=== PATIENT | male | born 1960 | race Caucasian/White ===

== ENCOUNTER → 2017-05-07 | Day surgery (SDC) | payer BC ==
[~2017-05-07] MED LIST: Lactated Ringers 1,000 ML IV SCH; Propofol 200 MG/20 ML SDV IV ONE
--- NOTE | 2017-05-10 07:55 | OR ---
DATE OF OPERATION: 05/07/2017 PREOPERATIVE DIAGNOSIS: SCREENING COLONOSCOPY. POSTOPERATIVE DIAGNOSIS: SCREENING COLONOSCOPY. SURGEON: Remi Villarreal MD PROCEDURE: FULL LENGTH COLONOSCOPY WITH POLYP REMOVAL X2. ANESTHESIA: MATERIAL SPECIALIST due to obstructive sleep apnea, morbid obesity, and seizure disorder. COMPLICATIONS: None. SPECIMEN: Hyperplastic polyps x2. FINDINGS: 1. Full-length colonoscopy. 2. Mild sigmoid diverticulosis. 3. Two small hyperplastic polyps. See note. RECOMMENDATIONS: Routine followup in 5-10 years pending path report. INDICATIONS: Mr. Lo was in for routine physical. He is due for a screening colonoscopy. DESCRIPTION OF PROCEDURE: The patient was prepped and draped, placed in the left lateral decubitus position. A lubricated Olympus colonoscope was inserted and easily advanced to the cecum. Direct visualization of the ileocecal valve and appendiceal orifice was accomplished. The bowel prep was excellent. Upon withdrawal, in the cecum, the patient did have a retroverted appendiceal stump. No other lesions were found in the right colon. Just near the hepatic flexure patient had a small flat hyperplastic-appearing polyp removed in its entirety with cold forceps biopsy x2. The rest of the transverse and descending colons were unremarkable. In the sigmoid area, there were scattered diverticula, mild in severity. No acute inflammatory changes. There are no signs of any polyps, mass, ulceration, or bleeding sites. No vascular abnormalities or signs of colitis. The rectal vault was evaluated and another small hyperplastic polyp was seen and removed with a forceps biopsy x2. Retroflexion showed no perianal lesions. Air was then suctioned, scope removed without complication. LUCIO/GISSEL /[id number]
== END ==
LOC: CC.SDS 13:25
PROVIDERS: ATTEND Family Medicine
DX: Z12.11 Encounter for screening for malignant neoplasm of colon (principal); D12.8 Benign neoplasm of rectum; D12.3 Benign neoplasm of transverse colon; K57.30 Diverticulosis of large intestine without perforation or abscess without bleeding; G47.33 Obstructive sleep apnea (adult) (pediatric); I10 Essential (primary) hypertension; E66.01 Morbid (severe) obesity due to excess calories; N40.0 Benign prostatic hyperplasia without lower urinary tract symptoms; Z68.41 Body mass index [BMI] 40.0-44.9, adult; Z99.89 Dependence on other enabling machines and devices
CPT/HCPCS: 45380; J2704; J7120

== ENCOUNTER 2020-01-07 17:12 | Observation (INO) | payer BC ==
[2020-01-07] MEDS ORDERED: Aspirin 81 MG Tab.Chew PO ONE (17:28)
--- NOTE | 2020-01-07 18:02 | EDM.PDOC ---
ED HPI GENERAL MEDICAL PROBLEM - General Chief Complaint: Chest Pain Stated Complaint: chest pain Time Seen by Provider: 01/07/20 17:40 Source of Information: Reports: Patient History Limitations: Reports: No Limitations - History of Present Illness INITIAL COMMENTS - FREE TEXT/NARRATIVE: This patient is a 59 year old male that presents to the ER. Patient reports he had been mowing grass and the mower had issues, so he had to finish with manual push mower. He reports he had to manually pull start the mower, then went back to mowing grass. He reports at about 4pm he had left central chest pain that was achy and tight in nature. He reports that the pain was a 5/10 and he was short of breath with it. He report that pain lasted about 10 minutes then went down to a 1/10, "barely there, almost gone." He reports that he is a nonsmoker, occasional drinker of about 4 beers per week. He reports history of HTN. He reports father had Bypass surgery older, but had history of weak heart. Patient reports that he has no history of stress test or cardiac history himself. Onset: Today Onset Date: 01/07/20 Onset Time: 16:00 Duration: Minutes: (10), Improving Improves with: Reports: None Worsens with: Reports: None Associated Symptoms: Reports: Chest Pain. Denies: Confusion, Cough, cough w sputum, Diaphoresis, Fever/Chills, Headaches, Loss of Appetite, Malaise, Nausea/Vomiting, Rash, Seizure, Shortness of Breath, Syncope, Weakness - Related Data Allergies Allergy/AdvReac Type Severity Reaction Status Date / Time No Known Allergies Allergy Verified 01/07/20 17:14 Home Meds: Home Meds Losartan [Cozaar] 50 mg PO DAILY 01/07/20 [History] hydroCHLOROthiazide [Hydrochlorothiazide] 12.5 mg PO DAILY 01/07/20 [History] Past Medical History HEENT History: Reports: Impaired Vision Cardiovascular History: Reports: Hypertension Gastrointestinal History: Reports: None Neurological History: Reports: Seizure - Past Surgical History HEENT Surgical History: Reports: None Cardiovascular Surgical History: Reports: None GI Surgical History: Reports: Appendectomy Other Neurological Surgeries/Procedures: R) temporal lobe removal d/t seizures. Social & Family History - Family History Family Medical History: Noncontributory - Tobacco Use Smoking Status *Q: Never Smoker Second Hand Smoke Exposure: No - Caffeine Use Caffeine Use: Reports: None - Recreational Drug Use Recreational Drug Use: No ED ROS GENERAL - Review of Systems Review Of Systems: See Below Constitutional: Reports: No Symptoms HEENT: Reports: No Symptoms Respiratory: Reports: Shortness of Breath. Denies: Pleuritic Chest Pain, Cough Cardiovascular: Reports: Chest Pain Endocrine: Reports: No Symptoms GI/Abdominal: Reports: No Symptoms : Reports: No Symptoms Musculoskeletal: Reports: No Symptoms Skin: Reports: No Symptoms Neurological: Reports: No Symptoms Psychiatric: Reports: No Symptoms Hematologic/Lymphatic: Reports: No Symptoms Immunologic: Reports: No Symptoms ED EXAM, GENERAL - Physical Exam Exam: See Below Exam Limited By: No Limitations General Appearance: Alert, WD/WN, No Apparent Distress Eye Exam: Bilateral Eye: Normal Inspection, PERRL Ears: Normal External Exam, Normal Canal, Hearing Grossly Normal, Normal TMs Ear Exam: Bilateral Ear: Auricle Normal, Canal Normal, TM normal Nose: Normal Inspection, Normal Mucosa, No Blood Throat/Mouth: Normal Inspection, Normal Lips, Normal Teeth, Normal Gums, Normal Oropharynx, Normal Voice, No Airway Compromise Head: Atraumatic, Normocephalic Neck: Normal Inspection, Supple, Non-Tender, Full Range of Motion Respiratory/Chest: No Respiratory Distress, Lungs Clear, Normal Breath Sounds, No Accessory Muscle Use, Chest Non-Tender Cardiovascular: Normal Peripheral Pulses, Regular Rate, Rhythm, No Edema, No Gallop, No JVD, No Murmur, No Rub Peripheral Pulses: 2+: Radial (L), Radial (R), Posterior Tibial (L), Posterior Tibial (R) GI/Abdominal: Soft, Non-Tender Back Exam: Normal Inspection, Full Range of Motion Extremities: Normal Inspection, Normal Range of Motion, Non-Tender, No Pedal Edema, Normal Capillary Refill Neurological: Alert, Oriented, Normal Cognition, Normal Gait, No Motor/Sensory Deficits Psychiatric: Normal Affect, Normal Mood Skin Exam: Warm, Dry, Intact, Normal Color, No Rash EKG INTERPRETATION EKG Date: 01/07/20 Time: 18:09 Rate (Beats/Min): 60 QRS: Normal ST-T: Normal Comparison: NA - No Prior EKG Course - Vital Signs Last Recorded V/S: Last Vital Signs Temp 98.0 F 01/07/20 18:17 Pulse 69 08/16/20 18:17 Resp 18 01/07/20 18:17 BP 124/70 01/07/20 18:17 Pulse Ox 95 01/07/20 18:17 - Orders/Labs/Meds Orders: Active Orders 24 hr Category Date Time Status CXR [Chest 2V] [CR] Stat Exams 01/07/20 17:37 Taken Nitroglycerin [Nitrostat] Med 01/07/20 18:07 Active 0.4 mg SL Q5M PRN Medication Orders Nitroglycerin (Nitrostat) 0.4 mg SL Q5M PRN PRN Reason: Chest Pain Last Admin: 01/07/20 18:10 Dose: 0.4 mg Documented by: STEPHY Labs: Laboratory Tests 01/07/20 01/07/20 01/07/20 Range/Units 17:45 17:45 17:45 WBC 7.6 (5.0-10.0) 10^3/uL RBC 5.16 (4.50-6.00) 10^6/uL Hgb 15.7 (14.0-18.0) g/dL Hct 46.0 (40.0-54.0) % MCV 89.1 (82.0-94.0) fL MCH 30.4 (27.0-32.0) pg MCHC 34.1 (33.0-38.0) g/dL RDW Coeff of Yaima 14.1 (11.0-15.0) % Plt Count 212 (150-400) 10^3/uL Neut % (Auto) 58.5 (35-85) % Lymph % (Auto) 26.3 (10-55) % [place] % (Auto) 13.5 (0-16) % Eos % (Auto) 1.2 (0-5) % Baso % (Auto) 0.5 (0-3) % Neut # (Auto) 4.42 (1.80-7.00) 10^3/uL Lymph # (Auto) 1.99 (1.00-4.80) 10^3/uL [place] # (Auto) 1.02 H (0.00-0.80) 10^3/uL Eos # (Auto) 0.09 (0.00-0.45) 10^3/uL Baso # (Auto) 0.04 10^3/uL APTT (23.2-32.3) SEC Sodium 140 (136-145) mEq/L Potassium 4.0 (3.5-5.0) mEq/L Chloride 104 (98-106) mEq/L Carbon Dioxide 25 (21-32) mmol/L BUN 14 (7-18) mg/dL Creatinine 1.0 (0.7-1.3) mg/dL Est Cr Clr Drug Dosing 83.14 mL/min Estimated GFR (MDRD) > 60 (>=60) mL/min Glucose 104 H (75-99) mg/dL Calcium 9.1 (8.4-10.1) mg/dL Total Bilirubin 0.6 (0.0-1.0) mg/dL AST 31 (15-37) U/L ALT 52 (12-78) U/L Alkaline Phosphatase 81 (46-116) U/L Lactate Dehydrogenase 217 H (100-190) U/L Creatine Kinase 159 (35-232) U/L Troponin I 0.031 (0.00-0.06) ng/mL Total Protein 7.1 (6.4-8.2) g/dL Albumin 3.8 (3.4-5.0) g/dL Lipase 133 (73-393) U/L COVID-19 (YE) Negative (NEGATIVE) 01/07/20 01/07/20 Range/Units 17:45 21:00 WBC (5.0-10.0) 10^3/uL RBC (4.50-6.00) 10^6/uL Hgb (14.0-18.0) g/dL Hct (40.0-54.0) % MCV (82.0-94.0) fL MCH (27.0-32.0) pg MCHC (33.0-38.0) g/dL RDW Coeff of Yaima (11.0-15.0) % Plt Count (150-400) 10^3/uL Neut % (Auto) (35-85) % Lymph % (Auto) (10-55) % [place] % (Auto) (0-16) % Eos % (Auto) (0-5) % Baso % (Auto) (0-3) % Neut # (Auto) (1.80-7.00) 10^3/uL Lymph # (Auto) (1.00-4.80) 10^3/uL [place] # (Auto) (0.00-0.80) 10^3/uL Eos # (Auto) (0.00-0.45) 10^3/uL Baso # (Auto) 10^3/uL APTT 23.9 (23.2-32.3) SEC Sodium (136-145) mEq/L Potassium (3.5-5.0) mEq/L Chloride (98-106) mEq/L Carbon Dioxide (21-32) mmol/L BUN (7-18) mg/dL Creatinine (0.7-1.3) mg/dL Est Cr Clr Drug Dosing mL/min Estimated GFR (MDRD) (>=60) mL/min Glucose (75-99) mg/dL Calcium (8.4-10.1) mg/dL Total Bilirubin (0.0-1.0) mg/dL AST (15-37) U/L ALT (12-78) U/L Alkaline Phosphatase (46-116) U/L Lactate Dehydrogenase (100-190) U/L Creatine Kinase (35-232) U/L Troponin I 0.059 (0.00-0.06) ng/mL Total Protein (6.4-8.2) g/dL Albumin (3.4-5.0) g/dL Lipase (73-393) U/L COVID-19 (YE) (NEGATIVE) Meds: Medications Generic Name Dose Route Start Last Admin Trade Name Freq PRN Reason Stop Dose Admin Nitroglycerin 0.4 mg 01/07/20 18:07 01/07/20 18:10 Nitrostat SL 0.4 mg Q5M PRN Administration Chest Pain Discontinued Medications Generic Name Dose Route Start Last Admin Trade Name Freq PRN Reason Stop Dose Admin Aspirin 324 mg 01/07/20 17:28 01/07/20 17:34 Aspirin PO 01/07/20 17:29 324 mg ONETIME ONE Administration Nitroglycerin 0.4 mg 01/07/20 18:09 Nitrostat SL Q5M PRN Chest Pain - Radiology Interpretation Free Text/Narrative:: CXR: no acute findings - Re-Assessments/Exams Free Text/Narrative Re-Assessment/Exam: 01/07/20 18:40 Patient reports his pain resolved completely at 0/10 just prior to taking the 1 nitro. Will repeat troponin at 9pm. 01/07/20 21:57 This patient had a scant elevation in troponin, but it is still in the normal range. Patient has been pain free since 1840. Denies shortness of breath. I will draw a 3rd rule out troponin in the morning. I will admit observation for further rule out. If patient remains pain free and negative 3rd troponin, will discharge and schedule out patient stress test. Departure - Departure Time of Disposition: 22:01 Disposition: Refer to Observation Condition: Good Clinical Impression: Chest pain Qualifiers: Chest pain type: unspecified Qualified Code(s): R07.9 - Chest pain, unspecified Referrals: Remi Villarreal MD [Primary Care Provider] - Forms: ED Department Discharge Sepsis Event Note (ED) - Evaluation Sepsis Screening Result: No Definite Risk - Focused Exam Vital Signs: Vital Signs Temp Pulse Pulse Resp BP BP Pulse Ox 01/07/20 18:17 98.0 F 69 18 124/70 95 01/07/20 18:15 98.0 F 71 18 105/68 94 L 01/07/20 18:10 67 122/68 01/07/20 17:45 98.0 F 69 16 122/68 95 01/07/20 17:30 97.4 F 67 16 137/71 96 01/07/20 17:18 97.2 F 67 24 H 137/71 96 01/07/20 17:16 97.2 F 67 24 H 137/71 96 - My Orders Last 24 Hours: My Active Orders 01/07/20 17:37 CXR [Chest 2V] [CR] Stat 01/07/20 18:07 Nitroglycerin [Nitrostat] 0.4 mg SL Q5M PRN - Assessment/Plan Last 24 Hours: My Active Orders 01/07/20 17:37 CXR [Chest 2V] [CR] Stat 01/07/20 18:07 Nitroglycerin [Nitrostat] 0.4 mg SL Q5M PRN Plan: PLEASE SEE RN NOTE FOR PFSH.
[2020-01-07 18:07] LABS: CHLORIDE,CL 104 mEq/L (98-106); SODIUM,NA 140 mEq/L (136-145)
[2020-01-07] MEDS ORDERED: Nitroglycerin 0.4 MG Tab.SL SL PRN ×2 (18:07→18:09)
[2020-01-07] MEDS ORDERED: Ondansetron 4 MG/2 ML SDV IV PRN (23:00)
[2020-01-07] MEDS ORDERED: Morphine 2 MG/ML SYRINGE IVPUSH PRN (23:00)
[2020-01-07] MEDS ORDERED: Acetaminophen 325 MG Tab PO PRN (23:00)
[2020-01-08 07:37] LABS: CHLORIDE,CL 106 mEq/L (98-106); SODIUM,NA 139 mEq/L (136-145)
[2020-01-08] MEDS ORDERED: HYDROCHLOROTHIAZIDE 12.5 MG PO SCH ×2 (08:00)
[2020-01-08] MEDS ORDERED: Losartan 50 MG Tab **OWN MED PO SCH (08:00)
[2020-01-08] MEDS ORDERED: Hydrochlorothiazide 12.5 MG Cap PO SCH (08:00)
[2020-01-08] MEDS ORDERED: Losartan 25 MG Tab PO SCH (08:00)
--- NOTE | 2020-01-08 08:54 | PCM.PN ---
- General Info Date of Service: 01/08/20 Functional Status: Reports: Pain Controlled, Tolerating Diet, Ambulating, Urinating Pain Score: 0 - Review of Systems General: Reports: No Symptoms HEENT: Reports: No Symptoms Pulmonary: Reports: No Symptoms Cardiovascular: Reports: No Symptoms Gastrointestinal: Reports: No Symptoms Genitourinary: Reports: No Symptoms Musculoskeletal: Reports: No Symptoms Skin: Reports: No Symptoms Neurological: Reports: No Symptoms Psychiatric: Reports: No Symptoms - Patient Data Vitals - Most Recent: Last Vital Signs Temp 97.7 F 01/08/20 07:51 Pulse 60 01/08/20 07:51 Resp 20 01/08/20 07:51 BP 134/70 01/08/20 07:51 Pulse Ox 99 01/08/20 07:51 Weight - Most Recent: 320 lb Lab Results Last 24 Hours: Laboratory Results - last 24 hr 01/07/20 01/07/20 01/07/20 Range/Units 17:45 17:45 17:45 WBC 7.6 (5.0-10.0) 10^3/uL RBC 5.16 (4.50-6.00) 10^6/uL Hgb 15.7 (14.0-18.0) g/dL Hct 46.0 (40.0-54.0) % MCV 89.1 (82.0-94.0) fL MCH 30.4 (27.0-32.0) pg MCHC 34.1 (33.0-38.0) g/dL RDW Coeff of Yaima 14.1 (11.0-15.0) % Plt Count 212 (150-400) 10^3/uL Neut % (Auto) 58.5 (35-85) % Lymph % (Auto) 26.3 (10-55) % [place] % (Auto) 13.5 (0-16) % Eos % (Auto) 1.2 (0-5) % Baso % (Auto) 0.5 (0-3) % Neut # (Auto) 4.42 (1.80-7.00) 10^3/uL Lymph # (Auto) 1.99 (1.00-4.80) 10^3/uL [place] # (Auto) 1.02 H (0.00-0.80) 10^3/uL Eos # (Auto) 0.09 (0.00-0.45) 10^3/uL Baso # (Auto) 0.04 10^3/uL APTT (23.2-32.3) SEC Sodium 140 (136-145) mEq/L Potassium 4.0 (3.5-5.0) mEq/L Chloride 104 (98-106) mEq/L Carbon Dioxide 25 (21-32) mmol/L BUN 14 (7-18) mg/dL Creatinine 1.0 (0.7-1.3) mg/dL Est Cr Clr Drug Dosing 83.14 mL/min Estimated GFR (MDRD) > 60 (>=60) mL/min Glucose 104 H (75-99) mg/dL Calcium 9.1 (8.4-10.1) mg/dL Total Bilirubin 0.6 (0.0-1.0) mg/dL AST 31 (15-37) U/L ALT 52 (12-78) U/L Alkaline Phosphatase 81 (46-116) U/L Lactate Dehydrogenase 217 H (100-190) U/L Creatine Kinase 159 (35-232) U/L Troponin I 0.031 (0.00-0.06) ng/mL Total Protein 7.1 (6.4-8.2) g/dL Albumin 3.8 (3.4-5.0) g/dL Lipase 133 (73-393) U/L COVID-19 (YE) Negative (NEGATIVE) 01/07/20 01/07/20 01/08/20 Range/Units 17:45 21:00 02:20 WBC (5.0-10.0) 10^3/uL RBC (4.50-6.00) 10^6/uL Hgb (14.0-18.0) g/dL Hct (40.0-54.0) % MCV (82.0-94.0) fL MCH (27.0-32.0) pg MCHC (33.0-38.0) g/dL RDW Coeff of Yaima (11.0-15.0) % Plt Count (150-400) 10^3/uL Neut % (Auto) (35-85) % Lymph % (Auto) (10-55) % [place] % (Auto) (0-16) % Eos % (Auto) (0-5) % Baso % (Auto) (0-3) % Neut # (Auto) (1.80-7.00) 10^3/uL Lymph # (Auto) (1.00-4.80) 10^3/uL [place] # (Auto) (0.00-0.80) 10^3/uL Eos # (Auto) (0.00-0.45) 10^3/uL Baso # (Auto) 10^3/uL APTT 23.9 (23.2-32.3) SEC Sodium (136-145) mEq/L Potassium (3.5-5.0) mEq/L Chloride (98-106) mEq/L Carbon Dioxide (21-32) mmol/L BUN (7-18) mg/dL Creatinine (0.7-1.3) mg/dL Est Cr Clr Drug Dosing mL/min Estimated GFR (MDRD) (>=60) mL/min Glucose (75-99) mg/dL Calcium (8.4-10.1) mg/dL Total Bilirubin (0.0-1.0) mg/dL AST (15-37) U/L ALT (12-78) U/L Alkaline Phosphatase (46-116) U/L Lactate Dehydrogenase (100-190) U/L Creatine Kinase (35-232) U/L Troponin I 0.059 0.044 (0.00-0.06) ng/mL Total Protein (6.4-8.2) g/dL Albumin (3.4-5.0) g/dL Lipase (73-393) U/L COVID-19 (YE) (NEGATIVE) 01/08/20 01/08/20 Range/Units 07:05 07:05 WBC 5.7 (5.0-10.0) 10^3/uL RBC 4.93 (4.50-6.00) 10^6/uL Hgb 14.9 (14.0-18.0) g/dL Hct 44.4 (40.0-54.0) % MCV 90.1 (82.0-94.0) fL MCH 30.2 (27.0-32.0) pg MCHC 33.6 (33.0-38.0) g/dL RDW Coeff of Yaima 14.2 (11.0-15.0) % Plt Count 197 (150-400) 10^3/uL Neut % (Auto) 49.1 (35-85) % Lymph % (Auto) 30.4 (10-55) % [place] % (Auto) 18.8 H (0-16) % Eos % (Auto) 1.4 (0-5) % Baso % (Auto) 0.3 (0-3) % Neut # (Auto) 2.81 (1.80-7.00) 10^3/uL Lymph # (Auto) 1.74 (1.00-4.80) 10^3/uL [place] # (Auto) 1.08 H (0.00-0.80) 10^3/uL Eos # (Auto) 0.08 (0.00-0.45) 10^3/uL Baso # (Auto) 0.02 10^3/uL APTT (23.2-32.3) SEC Sodium 139 (136-145) mEq/L Potassium 4.1 (3.5-5.0) mEq/L Chloride 106 (98-106) mEq/L Carbon Dioxide 29 (21-32) mmol/L BUN 12 (7-18) mg/dL Creatinine 0.8 (0.7-1.3) mg/dL Est Cr Clr Drug Dosing 103.92 mL/min Estimated GFR (MDRD) > 60 (>=60) mL/min Glucose 96 (75-99) mg/dL Calcium 8.3 L (8.4-10.1) mg/dL Total Bilirubin (0.0-1.0) mg/dL AST (15-37) U/L ALT (12-78) U/L Alkaline Phosphatase (46-116) U/L Lactate Dehydrogenase (100-190) U/L Creatine Kinase (35-232) U/L Troponin I (0.00-0.06) ng/mL Total Protein (6.4-8.2) g/dL Albumin (3.4-5.0) g/dL Lipase (73-393) U/L COVID-19 (YE) (NEGATIVE) Med Orders - Current: Current Medications Acetaminophen (Tylenol) 650 mg PO Q4H PRN PRN Reason: Pain (Mild 1-3)/fever Morphine Sulfate (Morphine) 2 mg IVPUSH Q2H PRN PRN Reason: Pain (severe 7-10) Ondansetron HCl (Zofran) 4 mg IV Q6H PRN PRN Reason: Nausea/Vomiting Losartan 50 Mg Tab (Own Med) 0 each PO DAILY [facility] Last Admin: 01/08/20 07:49 Dose: 1 each Documented by: Hydrochlorothiazide 12.5 Mg Tab Own Med 0 each PO DAILY [facility] Last Admin: 01/08/20 07:49 Dose: 1 each Documented by: Discontinued Medications Aspirin (Aspirin) 324 mg PO ONETIME ONE Stop: 01/07/20 17:29 Last Admin: 01/07/20 17:34 Dose: 324 mg Documented by: Hydrochlorothiazide (Hydrochlorothiazide) 12.5 mg PO DAILY [facility] Losartan Potassium (Cozaar) 50 mg PO DAILY [facility] Nitroglycerin (Nitrostat) 0.4 mg SL Q5M PRN PRN Reason: Chest Pain Last Admin: 01/07/20 18:10 Dose: 0.4 mg Documented by: Nitroglycerin (Nitrostat) 0.4 mg SL Q5M PRN PRN Reason: Chest Pain - Exam General: Alert, Oriented, Cooperative, No Acute Distress Lungs: Clear to Auscultation, Normal Respiratory Effort Cardiovascular: Regular Rate, Regular Rhythm, No Murmurs Back Exam: Normal Inspection, Full Range of Motion Extremities: Normal Inspection, Normal Range of Motion, Non-Tender, No Pedal Edema, Normal Capillary Refill Peripheral Pulses: 2+: Radial (L), Radial (R) Skin: Warm, Dry, Intact Psy/Mental Status: Alert, Normal Affect, Normal Mood Sepsis Event Note - Evaluation Sepsis Screening Result: No Definite Risk - Focused Exam Vital Signs: Vital Signs Temp Pulse Resp BP Pulse Ox 01/08/20 07:51 97.7 F 60 20 134/70 99 01/08/20 04:00 51 L 01/07/20 23:53 98 F 60 18 135/62 98 01/07/20 23:00 97.6 F 62 18 127/67 98 - Problem List Review Problem List Initiated/Reviewed/Updated: Yes - My Orders Last 24 Hours: My Active Orders 01/07/20 Breakfast Heart Healthy Diet [DIET] 01/07/20 17:37 CXR [Chest 2V] [CR] Stat 01/07/20 22:04 Resuscitation Status Routine 01/07/20 23:00 Acetaminophen [Tylenol] 650 mg PO Q4H PRN Morphine 2 mg IVPUSH Q2H PRN Ondansetron [Zofran] 4 mg IV Q6H PRN 01/07/20 23:00 Patient Status [ADT] Routine Ambulate [RC] .PRN Ambulate [RC] .PRN Cardiac Monitoring [RC] 0800,1999 Notify Provider Vital Signs [RC] .PRN Oxygen Therapy [RC] .PRN Vital Signs [RC] 0000,[id number],1200,1600,2000 Cardiolite Stress Test [Myocardial Perf Spect Multi] [NM] Stat 01/08/20 08:00 Patient's Own Medication [Ptom] 0 each PO DAILY Patient's Own Medication [Ptom] 0 each PO DAILY - Plan Plan:: This patient was admitted for cardiac rule out due to chest pain with activity yesterday. Patient has had three consecutive negative troponins. Patient has been pain free since his admit. He denies chest pain, pain anywhere, shortness of breath, nausea. Reports he feels fine. I scheduled him a stress test for for 7am, then he will see his PCP. He is educated to return to the ER for any chest pain return, shortness of breath, jaw pain, arm pain, or any concerns at all. He voices back understanding of this.
--- NOTE | 2020-01-08 09:06 | PCM.DCSUM1 ---
Discharge Summary - Hospital Course HPI Initial Comments: This patient is a 59 year old male that presented to the ER yesterday. Patient was admitted for chest pain with activity. Patient since being admitted has had 0/10 chest pain. He denies any shortness of breath, chest pain, nausea, jaw pain, back pain, arm pain. He reports that he feels fine. Patient has had three consecutive negative troponins. No ST elevation on EKG. Patient monitored HR has been 50s-60s throughout stay. He denies headache, dizziness, lightheadedness, syncope, or any other symptoms. I have scheduled this patient for a stress test to be done on at 7am. The will be discharged home today. I educated the patient when to return to the ER. He understands and voices back that he will return for chest pain, jaw pain, arm pain, shortness of breath, or any concerns at all. He understands to rest and no strenuous activity and that he will see his PCP following the stress test. - Discharge Data Discharge Date: 01/08/20 Discharge Disposition: Home, Self-Care 01 Condition: Fair - Referral to Home Health Primary Care Physician: Remi Villarreal MD - Patient Instructions Diet: Heart Healthy Diet Activity: No Strenuous Activities, Rest and Relax Today Driving: May Drive Today Showering/Bathing: May Shower Notify Provider of: Fever, Increased Pain, Nausea and/or Vomiting - Discharge Plan *PRESCRIPTION DRUG MONITORING PROGRAM REVIEWED*: Not Applicable *COPY OF PRESCRIPTION DRUG MONITORING REPORT IN PATIENT TREY: Not Applicable Home Medications: Home Meds Losartan [Cozaar] 50 mg PO DAILY 01/07/20 [History] hydroCHLOROthiazide [Hydrochlorothiazide] 12.5 mg PO DAILY 01/07/20 [History] Patient Handouts: Nonspecific Chest Pain, Adult, [id number] Forms: ED Department Discharge Referrals: Remi Villarreal MD [Primary Care Provider] - - Discharge Summary/Plan Comment DC Time >30 min.: No - General Info Date of Service: 01/08/20 Functional Status: Reports: Pain Controlled, Tolerating Diet, Ambulating, Urinating - Review of Systems General: Reports: No Symptoms HEENT: Reports: No Symptoms Pulmonary: Reports: No Symptoms. Denies: Shortness of Breath Cardiovascular: Reports: No Symptoms. Denies: Chest Pain Gastrointestinal: Reports: No Symptoms. Denies: Nausea Genitourinary: Reports: No Symptoms Musculoskeletal: Reports: No Symptoms Skin: Reports: No Symptoms Neurological: Reports: No Symptoms Psychiatric: Reports: No Symptoms - Patient Data Vitals - Most Recent: Last Vital Signs Temp 97.7 F 01/08/20 07:51 Pulse 60 01/08/20 07:51 Resp 20 01/08/20 07:51 BP 134/70 01/08/20 07:51 Pulse Ox 99 01/08/20 07:51 Weight - Most Recent: 320 lb Lab Results - Last 24 hrs: Laboratory Results - last 24 hr 01/07/20 01/07/20 01/07/20 Range/Units 17:45 17:45 17:45 WBC 7.6 (5.0-10.0) 10^3/uL RBC 5.16 (4.50-6.00) 10^6/uL Hgb 15.7 (14.0-18.0) g/dL Hct 46.0 (40.0-54.0) % MCV 89.1 (82.0-94.0) fL MCH 30.4 (27.0-32.0) pg MCHC 34.1 (33.0-38.0) g/dL RDW Coeff of Yaima 14.1 (11.0-15.0) % Plt Count 212 (150-400) 10^3/uL Neut % (Auto) 58.5 (35-85) % Lymph % (Auto) 26.3 (10-55) % [place] % (Auto) 13.5 (0-16) % Eos % (Auto) 1.2 (0-5) % Baso % (Auto) 0.5 (0-3) % Neut # (Auto) 4.42 (1.80-7.00) 10^3/uL Lymph # (Auto) 1.99 (1.00-4.80) 10^3/uL [place] # (Auto) 1.02 H (0.00-0.80) 10^3/uL Eos # (Auto) 0.09 (0.00-0.45) 10^3/uL Baso # (Auto) 0.04 10^3/uL APTT (23.2-32.3) SEC Sodium 140 (136-145) mEq/L Potassium 4.0 (3.5-5.0) mEq/L Chloride 104 (98-106) mEq/L Carbon Dioxide 25 (21-32) mmol/L BUN 14 (7-18) mg/dL Creatinine 1.0 (0.7-1.3) mg/dL Est Cr Clr Drug Dosing 83.14 mL/min Estimated GFR (MDRD) > 60 (>=60) mL/min Glucose 104 H (75-99) mg/dL Calcium 9.1 (8.4-10.1) mg/dL Total Bilirubin 0.6 (0.0-1.0) mg/dL AST 31 (15-37) U/L ALT 52 (12-78) U/L Alkaline Phosphatase 81 (46-116) U/L Lactate Dehydrogenase 217 H (100-190) U/L Creatine Kinase 159 (35-232) U/L Troponin I 0.031 (0.00-0.06) ng/mL Total Protein 7.1 (6.4-8.2) g/dL Albumin 3.8 (3.4-5.0) g/dL Lipase 133 (73-393) U/L COVID-19 (YE) Negative (NEGATIVE) 01/07/20 01/07/20 01/08/20 Range/Units 17:45 21:00 02:20 WBC (5.0-10.0) 10^3/uL RBC (4.50-6.00) 10^6/uL Hgb (14.0-18.0) g/dL Hct (40.0-54.0) % MCV (82.0-94.0) fL MCH (27.0-32.0) pg MCHC (33.0-38.0) g/dL RDW Coeff of Yaima (11.0-15.0) % Plt Count (150-400) 10^3/uL Neut % (Auto) (35-85) % Lymph % (Auto) (10-55) % [place] % (Auto) (0-16) % Eos % (Auto) (0-5) % Baso % (Auto) (0-3) % Neut # (Auto) (1.80-7.00) 10^3/uL Lymph # (Auto) (1.00-4.80) 10^3/uL [place] # (Auto) (0.00-0.80) 10^3/uL Eos # (Auto) (0.00-0.45) 10^3/uL Baso # (Auto) 10^3/uL APTT 23.9 (23.2-32.3) SEC Sodium (136-145) mEq/L Potassium (3.5-5.0) mEq/L Chloride (98-106) mEq/L Carbon Dioxide (21-32) mmol/L BUN (7-18) mg/dL Creatinine (0.7-1.3) mg/dL Est Cr Clr Drug Dosing mL/min Estimated GFR (MDRD) (>=60) mL/min Glucose (75-99) mg/dL Calcium (8.4-10.1) mg/dL Total Bilirubin (0.0-1.0) mg/dL AST (15-37) U/L ALT (12-78) U/L Alkaline Phosphatase (46-116) U/L Lactate Dehydrogenase (100-190) U/L Creatine Kinase (35-232) U/L Troponin I 0.059 0.044 (0.00-0.06) ng/mL Total Protein (6.4-8.2) g/dL Albumin (3.4-5.0) g/dL Lipase (73-393) U/L COVID-19 (YE) (NEGATIVE) 01/08/20 01/08/20 Range/Units 07:05 07:05 WBC 5.7 (5.0-10.0) 10^3/uL RBC 4.93 (4.50-6.00) 10^6/uL Hgb 14.9 (14.0-18.0) g/dL Hct 44.4 (40.0-54.0) % MCV 90.1 (82.0-94.0) fL MCH 30.2 (27.0-32.0) pg MCHC 33.6 (33.0-38.0) g/dL RDW Coeff of Yaima 14.2 (11.0-15.0) % Plt Count 197 (150-400) 10^3/uL Neut % (Auto) 49.1 (35-85) % Lymph % (Auto) 30.4 (10-55) % [place] % (Auto) 18.8 H (0-16) % Eos % (Auto) 1.4 (0-5) % Baso % (Auto) 0.3 (0-3) % Neut # (Auto) 2.81 (1.80-7.00) 10^3/uL Lymph # (Auto) 1.74 (1.00-4.80) 10^3/uL [place] # (Auto) 1.08 H (0.00-0.80) 10^3/uL Eos # (Auto) 0.08 (0.00-0.45) 10^3/uL Baso # (Auto) 0.02 10^3/uL APTT (23.2-32.3) SEC Sodium 139 (136-145) mEq/L Potassium 4.1 (3.5-5.0) mEq/L Chloride 106 (98-106) mEq/L Carbon Dioxide 29 (21-32) mmol/L BUN 12 (7-18) mg/dL Creatinine 0.8 (0.7-1.3) mg/dL Est Cr Clr Drug Dosing 103.92 mL/min Estimated GFR (MDRD) > 60 (>=60) mL/min Glucose 96 (75-99) mg/dL Calcium 8.3 L (8.4-10.1) mg/dL Total Bilirubin (0.0-1.0) mg/dL AST (15-37) U/L ALT (12-78) U/L Alkaline Phosphatase (46-116) U/L Lactate Dehydrogenase (100-190) U/L Creatine Kinase (35-232) U/L Troponin I (0.00-0.06) ng/mL Total Protein (6.4-8.2) g/dL Albumin (3.4-5.0) g/dL Lipase (73-393) U/L COVID-19 (YE) (NEGATIVE) Med Orders - Current: Current Medications Acetaminophen (Tylenol) 650 mg PO Q4H PRN PRN Reason: Pain (Mild 1-3)/fever Morphine Sulfate (Morphine) 2 mg IVPUSH Q2H PRN PRN Reason: Pain (severe 7-10) Ondansetron HCl (Zofran) 4 mg IV Q6H PRN PRN Reason: Nausea/Vomiting Losartan 50 Mg Tab (Own Med) 0 each PO DAILY SIRI Last Admin: 01/08/20 07:49 Dose: 1 each Documented by: Hydrochlorothiazide 12.5 Mg Tab Own Med 0 each PO DAILY SIRI Last Admin: 01/08/20 07:49 Dose: 1 each Documented by: Discontinued Medications Aspirin (Aspirin) 324 mg PO ONETIME ONE Stop: 01/07/20 17:29 Last Admin: 01/07/20 17:34 Dose: 324 mg Documented by: Hydrochlorothiazide (Hydrochlorothiazide) 12.5 mg PO DAILY [facility] Losartan Potassium (Cozaar) 50 mg PO DAILY [facility] Nitroglycerin (Nitrostat) 0.4 mg SL Q5M PRN PRN Reason: Chest Pain Last Admin: 01/07/20 18:10 Dose: 0.4 mg Documented by: Nitroglycerin (Nitrostat) 0.4 mg SL Q5M PRN PRN Reason: Chest Pain - Exam General: Reports: Alert, Oriented, Cooperative Lungs: Reports: Clear to Auscultation, Normal Respiratory Effort Cardiovascular: Reports: Regular Rate, Regular Rhythm GI/Abdominal Exam: Soft, Non-Tender Back Exam: Reports: Normal Inspection Extremities: Normal Inspection, Normal Range of Motion, No Pedal Edema, Normal Capillary Refill Skin: Reports: Warm, Dry, Intact Psy/Mental Status: Reports: Alert, Normal Affect, Normal Mood
== END 2020-01-08 10:45 | disposition home or self-care (01) ==
LOC: CC.ED 17:12 → CC.MS 22:04 → UNDOADMOB 22:20
PROVIDERS: ADMIT Nurse Practitioner; ATTEND Family Medicine
DX: R07.89 Other chest pain (principal); I10 Essential (primary) hypertension; Z20.828 Contact with and (suspected) exposure to other viral communicable diseases; Z79.899 Other long term (current) drug therapy
CPT/HCPCS: 36415; 71046; 80048; 80053; 82550; 83615; 83690; 84484; 85025; 85730; 93005; 99285-25; A9270-GY; G0378; U0002

== ENCOUNTER → 2022-08-14 | Day surgery (SDC) | payer BC ==
[~2022-08-14] MED LIST changes: +Glycopyrrolate 0.2 MG/ML SDV ONE; +Ketamine 200 MG/20 ML MDV ONE; -Lactated Ringers 1,000 ML IV SCH; +Phenylephrine 1% 10 MG/ML SDV ONE; -Propofol 200 MG/20 ML SDV IV ONE; +Propofol 200 MG/20 ML SDV ONE; +fentaNYL 50 MCG/ML SDV ONE
[2022-08-14] MEDS: Lactated Ringers 1,000 ML IV SCH (08:25)
[2022-08-14 14:16] VITALS: BP 130/70; PULSE 70
== END ==
LOC: CC.SDS 07:34
PROVIDERS: ATTEND Family Medicine
DX: Z12.11 Encounter for screening for malignant neoplasm of colon (principal); D12.3 Benign neoplasm of transverse colon; D12.4 Benign neoplasm of descending colon; K57.30 Diverticulosis of large intestine without perforation or abscess without bleeding; I25.10 Atherosclerotic heart disease of native coronary artery without angina pectoris; I10 Essential (primary) hypertension; M17.9 Osteoarthritis of knee, unspecified; N40.0 Benign prostatic hyperplasia without lower urinary tract symptoms; G47.30 Sleep apnea, unspecified; Z86.010 Personal history of colon polyps; Z79.899 Other long term (current) drug therapy
CPT/HCPCS: 00811; J2370; J2704; J3010; J3490; J7120